=== PATIENT | female | born 1995 | race Caucasian/White ===

== ENCOUNTER 2017-08-26 12:39 | Emergency (ER) | payer OTHER ==
[~2017-08-26] VITALS: Ht 165.1 cm; Wt 66.7 kg
--- NOTE | ~2017-08-26 | EKG ---
[address] [address] ELECTROCARDIOGRAM REPORT Name: VALERIO VALENTIN [id number] Admission: 08/26/17 Attend Phys: Discharge: 08/26/17 Date of : [birth year] Report #: [id number] THIS REPORT FOR: //name// [facility] ED Test Date: 2017-08-26 Test Time: 14:49:14 Pat Name: VALERIO VALENTIN Department: Room: Gender: F Design Tech: [facility] : 1995 Requested By: Hayde Douglas Order Number: [id number] MD: Jonatan Rodriges Measurements Intervals [place] Rate: 72 P: 51 GA: 161 QRS: 36 QRSD: 90 T: 17 QT: 370 QTc: 405 Interpretive Statements Sinus rhythm Normal tracing No previous ECG available for comparison Electronically Signed On 08-27-2017 15:28:57 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
[~2017-08-26 12:39] MED LIST: ABILIFY15 MG PO; LEXAPRO 10 MG T10 M2 PO; NAPROSYN500 MG PO; TRILEPTAL300 MG PO
[2017-08-26 14:03] LABS: URINE BILIRUBIN NEGATIVE (Negative); URINE BLOOD NEGATIVE (Negative); URINE CLARITY CLEAR; URINE COLOR YELLOW; URINE GLUCOSE-RANDOM* NEGATIVE (Negative); URINE KETONES NEGATIVE (Negative); URINE LEUKOCYTES-REFLEX NEGATIVE (Negative); URINE NITRITE-REFLEX NEGATIVE (Negative); URINE PROTEIN (DIPSTICK) NEGATIVE (Negative); URINE UROBILINOGEN 0.2 E.U./dl (0.2-1.0)
[2017-08-26 15:04] LABS: ABSOLUTE NEUTROPHILS 7.7 thou/uL (1.4-8.2); BASOPHILS 0.6 % (0.0-2.0); EOSINOPHILS 2.2 % (0.0-3.0); HEMATOCRIT 41.5 % (37.0-47.0); HEMOGLOBIN 14.1 gm/dL (12.0-15.0); MCH 28.8 pg (26.0-34.0); MCV 84.5 fL (80.0-100.0); MONOCYTES 7.4 % (1.0-8.0); PLATELET COUNT 285 thou/uL (150-400); POLYS 69.8 % (36.0-66.0); RBC 4.91 mil/uL (4.20-5.00); RDW 12.9 % (10.5-14.5)
[2017-08-26 15:14] LABS: CALCIUM 9.2 mg/dL (8.5-10.1); CREATININE 0.7 mg/dL (0.6-1.0); MAGNESIUM 2.1 mg/dL (1.8-2.4); POTASSIUM 3.8 mmol/L (3.5-5.1)
== END 2017-08-26 15:45 | disposition home or self-care (01) ==
LOC: ER 12:39
PROVIDERS: Emergency Medicine
DX: R55 Syncope and collapse (principal); F32.9 Major depressive disorder, single episode, unspecified; F41.9 Anxiety disorder, unspecified